=== PATIENT | male | born 1940 | race Caucasian/White ===

== ENCOUNTER 2016-12-26 08:39 | Emergency (ER) | payer OTHER ==
[2016-12-26 09:10] VITALS: PULSE 90; RESP 16; TEMP 98.6; O2SAT 95
--- NOTE | 2016-12-26 09:51 | UCPHY ---
H & P Time Seen by Provider: 12/26/16 09:20 Patient Type: New HPI/ROS: 76-year-old male presents complaining of sore throat for several days worse today, states is painful to swallow every is able to tolerate his own secretions and has been able to eat and drink. He denies fevers or chills he does complain of some mucus buildup in the back of his throat which she attributes to seasonal allergies. He has not noticed a change in his voice. Review of systems General no fever no chills no weakness HEENT no eye pain no eye discharge. No eye redness, positive sore throat Respiratory no cough, no shortness of breath Cardiac no chest pain, no peripheral edema GI no abdominal pain, no diarrhea, no constipation, no nausea, no vomiting no flank pain, no hematuria, no dysuria Musculoskeletal no myalgias, no joint pain Heme no easy bruising, no easy bleeding Endo no polyuria, no polydipsia Skin no rashes, no pruritus Neuro no syncope, no dizziness, no headaches Psych is no suicidal ideation, no homicidal ideation Past Medical/Surgical History: Hyperlipidemia, hypertension Social History: Denies alcohol or drug use Smoking Status: Never smoked Physical Exam: 76-year-old male Alert and oriented in no acute distress nontoxic appearance, afebrile Atraumatic normocephalic Extraocular muscles intact, anicteric Neck-supple, positive anterior cervical lymphadenopathy mildly tender to palpation Oropharynx mildly erythematous, no uvular deviation, no purulent exudate, tolerating own secretions, no trismus Lungs clear to auscultation bilaterally Heart regular rate and rhythm Abdomen normoactive bowel sounds soft nontender Extremities no cyanosis clubbing edema Skin no rash Constitutional: Initial Vital Signs Temperature (C) 37 C 12/26/16 08:41 Heart Rate 90 12/26/16 08:41 Respiratory Rate 16 12/26/16 08:41 Blood Pressure 128/77 H 12/26/16 08:41 O2 Sat (%) 95 12/26/16 08:41 O2 Delivery Mode Room Air Allergies/Adverse Reactions: codeine [Codeine] Allergy (Severe, Verified 12/26/16 08:52) HIVES/DIFFICULTY BREATHING/ITCHY Penicillins Allergy (Severe, Verified 12/26/16 08:52) Hives ENVIRONMENTAL Allergy (Intermediate, Uncoded 12/26/16 08:52) SNEEZING/STUFFY NOSE Home Medications: Medication Instructions Recorded Atorvastatin Calcium 12/26/16 Lisinopril 12/26/16 Medical Decision Making ED Course/Re-evaluation: Patient seen and evaluated for sore throat of 3-4 days duration. Rapid strep negative Strep culture pending Differential diagnosis Strep pharyngitis, viral pharyngitis, generalized irritation of the throat secondary to seasonal allergies Impression Pharyngitis Seasonal allergies Plan Follow up with primary care physician - Data Points Laboratory Results: 12/26/16 12/26/16 Unknown 08:48 Group A Strep Screen NEGATIVE (NEGATIVE) Group A Strep DNA Pending Departure - Departure Disposition: Home, Routine, Self-Care Clinical Impression: Pharyngitis, Seasonal allergies Condition: Good Instructions: Pharyngitis (ED), Allergic Rhinitis (ED), Allergies (ED) Referrals: Virgie Fuentes MD [Primary Care Provider] - As per Instructions - PQRS PQRS Measurement: 134: Depression screening and followup, PRIME MD-PHQ2 (12 years and older) Over the last 2 weeks, how often have you been bothered by any of the following problems? 1. Feeling down, depressed, or hopeless? 2. Little interest or pleasure in doing things? Patient answered no to both 1 and 2 130: Documentation of medications. Reviewed all patient medications, doses, route and frequency. 226: Do you smoke? No. 47: 65 and older: Advanced care planning. Patient designates surrogate decision maker as spouse.. [Patient has advanced directive.] 51: 18 years old and older with diagnosis of COPD, spirometry performance. [Patient has no history of COPD 52: 18 years old and older with COPD and symptoms of COPD or FEV1<60% predicted prescribed a B Agonist. [Spirometry not performed; equipment not available.]
[2016-12-26 09:57] VITALS: BP 125/75
== END 2016-12-26 09:56 | disposition home or self-care (01) ==
LOC: CED 08:39
DX: J02.9 Acute pharyngitis, unspecified (principal); J30.1 Allergic rhinitis due to pollen
CPT/HCPCS: 87880-PO; G0463-PO

== ENCOUNTER → 2018-01-26 | Outpatient (CLI) | payer OTHER, BC | LOC: SUPIMAGING 15:37 | PROVIDERS: ATTEND Nurse Practitioner Family | DX: S92.522A Displaced fracture of middle phalanx of left lesser toe(s), initial encounter for closed fracture (principal); W20.8XXA Other cause of strike by thrown, projected or falling object, initial encounter | CPT/HCPCS: 73660-PN ==